=== PATIENT | male | born 1960 | race Caucasian/White ===

== ENCOUNTER → 2016-09-16 | Outpatient (CLI) | payer BC ==
--- NOTE | 2016-09-16 13:19 | US ---
EXAMINATION TYPE: US scrotum with doppler. Grayscale and color Doppler Duplex imaging performed of t he scrotum. DATE OF EXAM: 09/16/2016 12:54 PM COMPARISON: NONE CLINICAL HISTORY: N50.89 Testicular Mass. Right scrotal mass noted x 1 week. EXAM MEASUREMENTS: TESTICLES: Right Testicle: 4.5 x 3.2 x 2.3 cm Left Testicle: 5.0 x 2.7 x 2.4 cm EPIDIDYMIS HEAD: Right Epididymis: 3.4 x 3.7 x 1.9 cm Left Epididymis: 1.0 x 0.7 x 0.8 cm Doppler performed to assess for testicular vascularity; good bilateral color flow and waveforms are s een. There is no evidence of testicular torsion. Large right epididymal head cyst is noted and size = 3.6 x 3.7 x 2.1cm. Left epididymal head cyst = 0.7 x 0.6 x 0.3cm. Presence of hydroceles: no Presence of varicoceles: no Tech findings of large right epididymal head cyst was called to RITCHIE Smallwood, at Dr Chapman's Office at exam's end. No suspicious intratesticular masses seen. Comparison views are unremarkable. IMPRESSION: Large extratesticular or benign 3.7 cm epididymal head cyst corresponds to palpable abnor mality right scrotum.
== END | disposition home or self-care (01) ==
LOC: RADUSWWP 12:05
PROVIDERS: ATTEND Family Medicine
DX: N50.3 Cyst of epididymis (principal)
CPT/HCPCS: 76870; 93975

== ENCOUNTER 2020-06-01 10:07 | Day surgery (SDC) | payer BC ==
[2020-05-28 15:55] VITALS: BMI 30.5
--- NOTE | 2020-06-01 09:34 | P.GSHP ---
History of Present Illness H&P Date: 06/01/20 Chief Complaint: Right posterior back lipoma 60-year-old male here today for excision upper back lipoma. Patient has a 5 cm lipomatous mass right upper back. Increasing in size. Mild pain at times. Past Medical History Past Medical History: GERD/Reflux Additional Past Medical History / Comment(s): lipoma right back, History of Any Multi-Drug Resistant Organisms: None Reported Past Surgical History: Hernia Repair Additional Past Surgical History / Comment(s): colonoscopy, EGD Past Anesthesia/Blood Transfusion Reactions: No Reported Reaction Smoking Status: Former smoker Medications and Allergies Home Medications Medication Instructions Recorded Confirmed Type Pantoprazole [Protonix] 40 mg PO DAILY 05/28/20 05/28/20 History Allergies Allergy/AdvReac Type Severity Reaction Status Date / Time No Known Allergies Allergy Verified 05/28/20 15:52 Surgical - Exam Physical exam: General: Well-developed, well-nourished HEENT: Normocephalic, sclerae nonicteric Abdomen: Nontender, nondistended Extremities: No edema, 3 x 5 cm right upper back mass Neuro: Alert and oriented Assessment and Plan (1) Mass on back Narrative/Plan: We'll proceed with surgical excision right-sided back mass at this time. Risks of bleeding, infection, scarring, recurrence. He understands and wishes to proceed. Status: Acute Code(s): R22.2 - LOCALIZED SWELLING, MASS AND LUMP, TRUNK SNOMED Code(s): 931253138
[~2020-06-01 10:07] MED LIST: ACETAMINOPHEN TAB 500 MG TAB PO PRN; HEPARIN SODIUM,PORCINE 5,000 UNIT/ML 1 ML VIAL SQ PRN; Pre Op ABX Message 1 EACH MISC MISCELLANE ONE
[2020-06-01] MEDS ORDERED: ONDANSETRON 4 MG/2 ML VIAL ONE (10:25)
[2020-06-01] MEDS ORDERED: ONDANSETRON 4 MG/2 ML VIAL IVP ONE (10:41)
[2020-06-01] MEDS ORDERED: LACTATED RINGERS 1,000 ML IV ONE (10:41)
[2020-06-01] MEDS ORDERED: LIDOCAINE 1% (10MG/ML) FOR IV START INTRADERMA ONE (10:41)
[2020-06-01] MEDS ORDERED: DEXAMETHASONE SOD PHOSPHATE 4 MG/ML 1 ML VIAL IV ONE (10:42)
[2020-06-01] MEDS ORDERED: fentaNYL (PF) 50 MCG/ML 2 ML AMP ONE (11:35)
[2020-06-01] MEDS ORDERED: LIDOCAINE 1% INJ 10MG/ML (20 ML MDV) ONE (11:35)
[2020-06-01] MEDS ORDERED: MIDAZOLAM 2 MG/2 ML VIAL ONE (11:35)
[2020-06-01] MEDS ORDERED: PROPOFOL 10 MG/ML 20 ML VIAL IV ONE (11:35)
[2020-06-01] MEDS ORDERED: BUPIVACAINE (PF) 0.25% 30 ML VIAL SQ ONE ×2 (11:58)
[2020-06-01] MEDS ORDERED: NALOXONE 0.4 MG/ML 1 ML VIAL IV PRN (12:26)
[2020-06-01 12:31] VITALS: TEMP 97.9
[2020-06-01 12:39] VITALS: RESP 16
[2020-06-01 13:42] VITALS: BP 135/90; PULSE 62
--- NOTE | 2020-06-01 15:34 | P.OP ---
Date of Procedure: 06/01/20 Procedure(s) Performed: PREOPERATIVE DIAGNOSIS: Right back lipoma POSTOPERATIVE DIAGNOSIS: Right back lipoma PROCEDURE: Excision 4 cm right back lipoma with intermediate closure SURGEON: Annetta EBL: Shahid Jacobo ANESTHESIA: Gen. COMPLICATIONS: None OPERATIVE PROCEDURE: Patient placed in the left decubitus position. The patient's right posterior back lipomatous mass was prepped and draped sterilely. The skin was infiltrated with local anesthesia. A horizontal incision was made overlying the palpable mass. The subcutaneous lipomatous mass was fully excised. The lipoma itself was adherent to the surrounding adipose tissue. This required excision by electrocautery. This measured 4 x 3 x 1 cm. This was sent to pathology. No additional abnormalities were present. The subcutaneous tissues were then closed using interrupted 3-0 Vicryl sutures and the skin using a running 4-0 Monocryl stitch. Skin glue and sterile was applied. Length of intermediate closure 5 cm. DISPOSITION: Stable to recovery room
== END 2020-06-01 14:05 | disposition home or self-care (01) ==
LOC: OR 10:07
PROVIDERS: ATTEND Surgery
DX: D17.1 Benign lipomatous neoplasm of skin and subcutaneous tissue of trunk (principal); K21.9 Gastro-esophageal reflux disease without esophagitis; Z87.19 Personal history of other diseases of the digestive system; Z98.890 Other specified postprocedural states; Z87.891 Personal history of nicotine dependence; Z79.899 Other long term (current) drug therapy
CPT/HCPCS: 88304; 21931; J2250; J1644; J1100; J2405; J2001; J3010; J2704

== ENCOUNTER 2022-03-21 18:45 | Observation (INO) | payer BC ==
[2022-03-21 19:56] LABS: Glucose,Whole Blood 106 mg/dL (70-110)
[2022-03-21] MEDS ORDERED: SODIUM CHLORIDE 0.9% 1,000 ML IV STA (20:04)
[2022-03-21] MEDS ORDERED: ONDANSETRON 4 MG/2 ML VIAL IVP STA (20:05)
--- NOTE | 2022-03-21 20:13 | ED ---
General Adult HPI - General Source: patient Mode of arrival: ambulatory Limitations: no limitations <AkashMary Bethmacy Angulo - Last Filed: 03/21/22 20:51> <Ankit Goldstein - Last Filed: 03/21/22 21:38> - General Chief complaint: Abdominal Pain Stated complaint: Lower Abd pain Time Seen by Provider: 03/21/22 19:55 - History of Present Illness Initial comments: Dictation was produced using [employer] dictation software. please excuse any grammatical, word or spelling errors. Chief Complaint: 62-year-old male presents emergency Department 1 day history of abdominal pain History of Present Illness: Patient 62-year-old male presents emergency department for right lower quadrant abdominal pain. Patient states his symptoms began this morning. He woke up in his usual state of health. Patient states he felt fine yesterday. Patient with nausea, chills. Patient has a history of abdominal surgery. Denies any vomiting however has been dry heaving throughout the day. One the waiting room patient allegedly passed out and had convulsions of his head and neck area. Did urinate himself. is at the bedside states that she ran up to the nurses said that she thinks that her is having a seizure. Patient does not have any history of seizures. Did not notice any corticate posturing of his extremities. Did look like he was slumped over. He was diaphoretic at the time. Patient has any headache. There was no postictal state. The ROS documented in this emergency department record has been reviewed and confirmed by me. Those systems with pertinent positive or negative responses have been documented in the HPI. All other systems are other negative and/or noncontributory. PHYSICAL EXAM: General Impression: Alert and oriented x3, not in acute distress HEENT: Normocephalic atraumatic, extra-ocular movements intact, pupils equal and reactive to light bilaterally, mucous membranes moist. Cardiovascular: Heart regular rate and rhythm Chest: Able to complete full sentences, no retractions, no tachypnea Abdomen: abdomen soft, palpatory tenderness to the right lower quadrant, non- distended, no organomegaly Musculoskeletal: Pulses present and equal in all extremities, no peripheral edema Motor: no focal deficits noted Neurological: CN II-XII grossly intact, no focal motor or sensory deficits noted Skin: Intact with no visualized rashes Psych: Normal affect and mood ED course: 62-year-old male presents emergency department for chief complaint of right lower quadrant pain that began today. He did have an event while in the waiting room that sounded atypical for seizure. Vital signs as upon arrival are within acceptable limits. My EKG interpretation: Ventricular rate 66, sinus rhythm,. 162, care is 105, QTC 4:15. No DC prolongation, no QTC prolongation, no ST or T-wave changes noted. Overall, this EKG is unremarkable Patient is sent out to Dr. Padilla At 9:00 PM. (Christiano Bustos) - Related Data Home Medications Medication Instructions Recorded Confirmed Aspirin EC [Ecotrin Low Dose] 81 mg PO Q48H 03/21/22 03/21/22 Losartan/Hydrochlorothiazide 1 tab PO DAILY 03/21/22 03/21/22 [Hyzaar 100-25 Tablet] Omeprazole 20 mg PO BID 03/21/22 03/21/22 Allergies Allergy/AdvReac Type Severity Reaction Status Date / Time No Known Allergies Allergy Verified 03/21/22 21:01 Review of Systems ROS Other: All systems not noted in ROS Statement are negative. <Christiano Bustos - Last Filed: 03/21/22 20:51> ROS Other: All systems not noted in ROS Statement are negative. <Ankit Goldstein - Last Filed: 03/21/22 21:38> ROS Statement: Those systems with pertinent positive or pertinent negative responses have been documented in the HPI. Past Medical History Past Medical History: GERD/Reflux, Hypertension Additional Past Medical History / Comment(s): lipoma right back, History of Any Multi-Drug Resistant Organisms: None Reported Past Surgical History: Hernia Repair Additional Past Surgical History / Comment(s): colonoscopy, EGD Past Anesthesia/Blood Transfusion Reactions: No Reported Reaction Past Psychological History: No Psychological Hx Reported Smoking Status: Former smoker Past Alcohol Use History: None Reported Past Drug Use History: None Reported <Christiano Bustos - Last Filed: 03/21/22 20:51> General Exam Limitations: no limitations <Christiano Bustos - Last Filed: 03/21/22 20:51> General appearance: alert, in no apparent distress Head exam: Present: atraumatic, normocephalic, normal inspection Eye exam: Present: normal appearance, PERRL, EOMI. Absent: scleral icterus, conjunctival injection, periorbital swelling ENT exam: Present: normal exam, mucous membranes moist Neck exam: Present: normal inspection. Absent: tenderness, meningismus, lymphadenopathy Respiratory exam: Present: normal lung sounds bilaterally. Absent: respiratory distress, wheezes, rales, rhonchi, stridor Cardiovascular Exam: Present: regular rate, normal rhythm, normal heart sounds. Absent: systolic murmur, diastolic murmur, rubs, gallop, clicks GI/Abdominal exam: Present: soft, tenderness (Right lower quadrant), normal bowel sounds. Absent: distended, guarding, rebound, rigid Extremities exam: Present: normal inspection, full ROM, normal capillary refill. Absent: tenderness, pedal edema, joint swelling, calf tenderness Back exam: Present: normal inspection Neurological exam: Present: alert, oriented X3, CN II-XII intact Psychiatric exam: Present: normal affect, normal mood Skin exam: Present: warm, dry, intact, normal color. Absent: rash <Ankit Goldstein - Last Filed: 03/21/22 21:38> Course <Ankit Goldstein - Last Filed: 03/21/22 21:38> Vital Signs 03/21/22 03/21/22 18:50 20:02 Temperature 98.7 F Pulse Rate 83 80 Pulse Rate [ 80 Apical] Respiratory 20 14 Rate Blood Pressure 151/98 126/85 O2 Sat by Pulse 98 97 Oximetry - Reevaluation(s) Reevaluation #1: 03/21/22 21:36 Medical records reviewed (Ankit Goldstein) Reevaluation #2: 03/21/22 21:36 patient's pain is controlled (Ankit Goldstein) Reevaluation #3: 03/21/22 21:36 no recurrent seizure here in the ER (Ankit Goldstein) Reevaluation #4: 03/21/22 21:36 Issue informed results questions answered (Ankit Goldstein) - Consultations Consultation #1: With Dr. Chavez who agrees to admit (Ankit Goldstein) Medical Decision Making - Lab Data Result diagrams: 03/21/22 20:06 03/21/22 20:06 <Christiano Bustos - Last Filed: 03/21/22 20:51> - Lab Data Result diagrams: 03/21/22 20:06 03/21/22 20:06 - Radiology Data Radiology results: report reviewed (CT of the abdomen and pelvis positive for acute appendicitis), image reviewed <Ankit Goldstein - Last Filed: 03/21/22 21:38> - Medical Decision Making 62 male to the ED co RLQ pain, positive for appendicitis patient did have seizure here in the ER Procedure. Patient given pain control antibiotics will be admitted for surgical evaluation (Ankit Goldstein) - Lab Data Lab Results 03/21/22 03/21/22 03/21/22 Range/Units 19:55 20:06 20:06 WBC 20.3 H (3.8-10.6) k/uL RBC 5.05 (4.30-5.90) m/uL Hgb 16.3 (13.0-17.5) gm/dL Hct 45.5 (39.0-53.0) % MCV 90.0 (80.0-100.0) fL MCH 32.3 (25.0-35.0) pg MCHC 35.9 (31.0-37.0) g/dL RDW 11.9 (11.5-15.5) % Plt Count 253 (150-450) k/uL MPV 8.6 Neutrophils % 87 % Lymphocytes % 6 % Monocytes % 5 % Eosinophils % 1 % Basophils % 0 % Neutrophils # 17.7 H (1.3-7.7) k/uL Lymphocytes # 1.2 (1.0-4.8) k/uL Monocytes # 1.0 (0-1.0) k/uL Eosinophils # 0.2 (0-0.7) k/uL Basophils # 0.1 (0-0.2) k/uL Sodium 135 L (137-145) mmol/L Potassium 4.0 (3.5-5.1) mmol/L Chloride 96 L (98-107) mmol/L Carbon Dioxide 26 (22-30) mmol/L Anion Gap 13 mmol/L BUN 21 H (9-20) mg/dL Creatinine 1.04 (0.66-1.25) mg/dL Est GFR (CKD-EPI)AfAm 88 (>60 ml/min/1.73 sqM) Est GFR (CKD-EPI)NonAf 76 (>60 ml/min/1.73 sqM) Glucose 111 H (74-99) mg/dL POC Glucose (mg/dL) 106 (70-110) mg/dL POC Glu Operating Room Surgical Technician ID Alaina Nunez Plasma Lactic Acid Gt (0.7-2.0) mmol/L Calcium 9.4 (8.4-10.2) mg/dL Magnesium 2.1 (1.6-2.3) mg/dL Total Bilirubin 0.8 (0.2-1.3) mg/dL AST 32 (17-59) U/L ALT 27 (4-49) U/L Alkaline Phosphatase 73 (38-126) U/L Total Protein 7.5 (6.3-8.2) g/dL Albumin 4.8 (3.5-5.0) g/dL Lipase 109 (23-300) U/L 03/21/22 Range/Units 20:06 WBC (3.8-10.6) k/uL RBC (4.30-5.90) m/uL Hgb (13.0-17.5) gm/dL Hct (39.0-53.0) % MCV (80.0-100.0) fL MCH (25.0-35.0) pg MCHC (31.0-37.0) g/dL RDW (11.5-15.5) % Plt Count (150-450) k/uL MPV Neutrophils % % Lymphocytes % % Monocytes % % Eosinophils % % Basophils % % Neutrophils # (1.3-7.7) k/uL Lymphocytes # (1.0-4.8) k/uL Monocytes # (0-1.0) k/uL Eosinophils # (0-0.7) k/uL Basophils # (0-0.2) k/uL Sodium (137-145) mmol/L Potassium (3.5-5.1) mmol/L Chloride (98-107) mmol/L Carbon Dioxide (22-30) mmol/L Anion Gap mmol/L BUN (9-20) mg/dL Creatinine (0.66-1.25) mg/dL Est GFR (CKD-EPI)AfAm (>60 ml/min/1.73 sqM) Est GFR (CKD-EPI)NonAf (>60 ml/min/1.73 sqM) Glucose (74-99) mg/dL POC Glucose (mg/dL) (70-110) mg/dL POC Glu Operating Room Surgical Technician ID Plasma Lactic Acid Gt 1.4 (0.7-2.0) mmol/L Calcium (8.4-10.2) mg/dL Magnesium (1.6-2.3) mg/dL Total Bilirubin (0.2-1.3) mg/dL AST (17-59) U/L ALT (4-49) U/L Alkaline Phosphatase (38-126) U/L Total Protein (6.3-8.2) g/dL Albumin (3.5-5.0) g/dL Lipase (23-300) U/L Disposition <Christiano Bustos - Last Filed: 03/21/22 20:51> Is patient prescribed a controlled substance at d/c from ED?: No <Ankit Goldstein - Last Filed: 03/21/22 21:38> Clinical Impression: Abdominal pain, Acute appendicitis, New onset seizure Disposition: ADMITTED IP TO THIS [facility] Instructions (If sedation given, give patient instructions): Seizure/Epilepsy Discharge Instructions & Follow-Up Referrals: Bharathi Hong MD [Primary Care Provider] - 1-2 days
[2022-03-21 20:18] LABS: Basophils # (A) 0.1 k/uL (0-0.2); Basophils % (A) 0 %; Eosinophils # (A) 0.2 k/uL (0-0.7); Eosinophils % (A) 1 %; HCT 45.5 % (39.0-53.0); HGB 16.3 gm/dL (13.0-17.5); Lymphocytes # (A) 1.2 k/uL (1.0-4.8); Lymphocytes % (A) 6 %; MCH 32.3 pg (25.0-35.0); MCHC 35.9 g/dL (31.0-37.0); Mean Platelet Volume 8.6; Monocytes % (A) 5 %; Neutrophils # (A) 17.7 k/uL (1.3-7.7); Neutrophils % (A) 87 %; Platelet Count 253 k/uL (150-450); RBC 5.05 m/uL (4.30-5.90); RDW 11.9 % (11.5-15.5); WBC 20.3 k/uL (3.8-10.6)
[2022-03-21 20:29] LABS: Albumin 4.8 g/dL (3.5-5.0); Calcium 9.4 mg/dL (8.4-10.2); Magnesium 2.1 mg/dL (1.6-2.3); Total Bilirubin 0.8 mg/dL (0.2-1.3); Total Protein 7.5 g/dL (6.3-8.2)
--- NOTE | 2022-03-21 21:00 | CT ---
EXAMINATION TYPE: CT brain wo con CT DLP: 1141.4 mGycm, Automated exposure control for dose reduction was used. DATE OF EXAM: 03/21/2022 8:38 PM COMPARISON: None. CLINICAL INDICATION:Male, 62 years old with history of rlq abdominal pain, Syncope/seizure TECHNIQUE: Brain: Axial CT images of the brain were obtained with coronal and sagittal reformats created and rev iewed. Contrast used: None. Oral contrast used: None. FINDINGS: Brain: Extra-axial spaces: No abnormal extra-axial fluid collections. Ventricular system: Within normal limits Cerebral parenchyma: No acute intraparenchymal hemorrhage or mass effect. The frederick-white junction is well differentiated. Cerebellum: Unremarkable. Mass effect: No evidence of midline shift. Intracranial vasculature: unremarkable Soft tissues: Normal. Calvarium/osseous structures: No depressed skull fracture. Paranasal sinuses and mastoid air cells: Mild scattered paranasal sinus disease worse in the frontal, ethmoid air cells. Visualized orbits: Orbital contents are intact. IMPRESSION: 1. No acute intracranial process. 2. Paranasal sinus disease.
--- NOTE | 2022-03-21 21:04 | CT ---
EXAMINATION TYPE: CT abdomen pelvis w con CT DLP: 1890.6 mGycm, Automated exposure control for dose reduction was used. DATE OF EXAM: 03/21/2022 8:38 PM COMPARISON: none CLINICAL INDICATION:Male, 62 years old with history of rlq abdominal pain; RLQ pain TECHNIQUE: Axial CT of the abdomen and pelvis. Sagittal and coronal reformats were created on a [employer] workstation. Contrast used:100cc mL of Isovue 300 with IV Contrast, Oral contrast used: without Oral Contrast FINDINGS: LOWER CHEST: Unremarkable ABDOMEN LIVER: Unremarkable GALLBLADDER AND BILE DUCTS: Unremarkable. PANCREAS: Unremarkable. SPLEEN: Unremarkable. ADRENAL GLANDS: Unremarkable. KIDNEYS AND URETERS: No evidence of hydronephrosis or renal calculus. Right renal cyst. PELVIS BLADDER: Unremarkable REPRODUCTIVE: Unremarkable. ABDOMEN & PELVIS STOMACH AND BOWEL: a the appendix is dilated with mild hazy fat stranding changes. The appendix measu res up to 13 mm and is fluid-filled. No evidence of bowel obstruction. Moderate hiatal hernia. Scatte red clonic diverticula are present. PERITONEUM: No evidence of pneumoperitoneum or free fluid. VASCULATURE: No evidence of aortic aneurysm. MUSCULOSKELETAL: No acute osseous abnormalities LYMPH NODES: No gross evidence for lymphadenopathy. SOFT TISSUE/ABDOMINAL WALL: Unremarkable IMPRESSION: 1. Acute uncomplicated appendicitis. No evidence of organizing fluid collection or free air. 2. Clonic diverticulosis.
[2022-03-21] MEDS ORDERED: PIPERACILLIN-TAZOBACTAM 3.375 GM in SODIUM CHLORIDE 0.9% 100 ML IVPB ONE (21:30)
[2022-03-21] MEDS ORDERED: MORPHINE SULFATE 4 MG/ML SYRINGE IV PRN (21:34)
[2022-03-21] MEDS ORDERED: NALOXONE 0.4 MG/ML 1 ML VIAL IV PRN (21:34)
[2022-03-21] MEDS ORDERED: ONDANSETRON 4 MG/2 ML VIAL IVP PRN (21:34)
--- NOTE | 2022-03-21 21:42 | XR ---
EXAMINATION TYPE: XR chest 2V DATE OF EXAM: 03/21/2022 9:06 PM COMPARISON: None TECHNIQUE: XR chest 2V Frontal and lateral views of the chest CLINICAL INDICATION:Male, 62 years old with history of syncope; FINDINGS: Lungs/Pleura: There is no evidence of pleural effusion, focal consolidation, or pneumothorax. Pulmonary vascularity: Unremarkable. Heart/mediastinum: Cardiomediastinal silhouette is unremarkable. Musculoskeletal: No acute osseous pathology. IMPRESSION: No acute cardiopulmonary disease/process.
[2022-03-21] MEDS ORDERED: PANTOPRAZOLE 40 MG/10 ML VIAL IV SCH (21:45)
[2022-03-21] MEDS: SODIUM CHLORIDE 0.9% 1,000 ML IV SCH (21:57)
--- NOTE | 2022-03-21 22:48 | P.GSHP ---
History of Present Illness H&P Date: 03/21/22 62-year-old male presents to the emergency department with complaints of abdominal pain that started at 8:30 this morning. He states that he did go to work and the pain progressed throughout the day and became worse. He states that he was having nausea and did have 1 vomiting episode. He states that his intake has been less than usual for the past day. On arrival to the emergency department, while in the waiting room, patient did have significant amount of pain and felt lightheaded and states that he passed out. This was witnessed by his . He was taken for evaluation into the emergency department and did have a CT of the head which showed no intracranial abnormality. CT of the abd omen and pelvis was performed that was concerning for acute appendicitis. Patient does not have a history of seizures or neurologic deficits. On exam, patient states that he is currently having abdominal pain but does not feel any weakness or deficits throughout his body. There is no evidence of postictal state. He denies any fevers. - Review of Systems All systems: negative Past Medical History Past Medical History: GERD/Reflux, Hypertension Additional Past Medical History / Comment(s): lipoma right back, History of Any Multi-Drug Resistant Organisms: None Reported Past Surgical History: Hernia Repair Additional Past Surgical History / Comment(s): colonoscopy, EGD Past Anesthesia/Blood Transfusion Reactions: No Reported Reaction Past Psychological History: No Psychological Hx Reported Smoking Status: Former smoker Past Alcohol Use History: None Reported Past Drug Use History: None Reported Medications and Allergies Home Medications Medication Instructions Recorded Confirmed Type Aspirin EC [Ecotrin Low Dose] 81 mg PO Q48H 03/21/22 03/21/22 History Losartan/Hydrochlorothiazide 1 tab PO DAILY 03/21/22 03/21/22 History [Hyzaar 100-25 Tablet] Omeprazole 20 mg PO BID 03/21/22 03/21/22 History Allergies Allergy/AdvReac Type Severity Reaction Status Date / Time No Known Allergies Allergy Verified 03/21/22 21:01 Surgical - Exam Osteopathic Statement: *. No significant issues noted on an osteopathic structural exam other than those noted in the History and Physical/Consult. Vital Signs Temp Pulse Resp BP Pulse Ox 98.7 F 83 20 151/98 98 03/21/22 18:50 03/21/22 18:50 03/21/22 18:50 03/21/22 18:50 03/21/22 18:50 - General well nourished, no distress - Eyes normal ocular movement - ENT no hearing loss - Neck trachea midline - Respiratory normal respiratory effort - Abdomen Soft, tender to palpation in the right lower quadrant, nondistended, no rebound, no guarding - Psychiatric oriented to time, oriented to person, oriented to place Results - Labs 03/21/22 20:06 03/21/22 20:06 Abnormal Lab Results - Last 24 Hours (Table) 03/21/22 03/21/22 Range/Units 20:06 20:06 WBC 20.3 H (3.8-10.6) k/uL Neutrophils # 17.7 H (1.3-7.7) k/uL Sodium 135 L (137-145) mmol/L Chloride 96 L (98-107) mmol/L BUN 21 H (9-20) mg/dL Glucose 111 H (74-99) mg/dL Diabetes panel 03/21/22 Range/Units 20:06 Sodium 135 L (137-145) mmol/L Potassium 4.0 (3.5-5.1) mmol/L Chloride 96 L (98-107) mmol/L Carbon Dioxide 26 (22-30) mmol/L BUN 21 H (9-20) mg/dL Creatinine 1.04 (0.66-1.25) mg/dL Glucose 111 H (74-99) mg/dL Calcium 9.4 (8.4-10.2) mg/dL AST 32 (17-59) U/L ALT 27 (4-49) U/L Alkaline Phosphatase 73 (38-126) U/L Total Protein 7.5 (6.3-8.2) g/dL Albumin 4.8 (3.5-5.0) g/dL Calcium panel 03/21/22 Range/Units 20:06 Calcium 9.4 (8.4-10.2) mg/dL Albumin 4.8 (3.5-5.0) g/dL Pituitary panel 03/21/22 Range/Units 20:06 Sodium 135 L (137-145) mmol/L Potassium 4.0 (3.5-5.1) mmol/L Chloride 96 L (98-107) mmol/L Carbon Dioxide 26 (22-30) mmol/L BUN 21 H (9-20) mg/dL Creatinine 1.04 (0.66-1.25) mg/dL Glucose 111 H (74-99) mg/dL Calcium 9.4 (8.4-10.2) mg/dL Adrenal panel 03/21/22 Range/Units 20:06 Sodium 135 L (137-145) mmol/L Potassium 4.0 (3.5-5.1) mmol/L Chloride 96 L (98-107) mmol/L Carbon Dioxide 26 (22-30) mmol/L BUN 21 H (9-20) mg/dL Creatinine 1.04 (0.66-1.25) mg/dL Glucose 111 H (74-99) mg/dL Calcium 9.4 (8.4-10.2) mg/dL Total Bilirubin 0.8 (0.2-1.3) mg/dL AST 32 (17-59) U/L ALT 27 (4-49) U/L Alkaline Phosphatase 73 (38-126) U/L Total Protein 7.5 (6.3-8.2) g/dL Albumin 4.8 (3.5-5.0) g/dL Assessment and Plan Plan: 62-year-old male with acute appendicitis. He was started on IV antibiotics in the emergency department and did receive IV fluids. Plan is for surgical intervention with laparoscopic appendectomy. He has been nothing by mouth. Further recommendations to be made after procedure is completed.
[2022-03-21] MEDS ORDERED: GLYCOPYRROLATE 0.2 MG/ML 2 ML VIAL ONE (23:00)
[2022-03-21] MEDS ORDERED: fentaNYL (PF) 50 MCG/ML 2 ML AMP ONE (23:00)
[2022-03-21] MEDS ORDERED: HEPARIN SODIUM,PORCINE 5,000 UNIT/ML 1 ML VIAL ONE (23:00)
[2022-03-21] MEDS ORDERED: ROCURONIUM 10 MG/ML (5 ML VIAL) IV ONE (23:00)
[2022-03-21] MEDS ORDERED: DEXAMETHASONE SOD PHOSPHATE 4 MG/ML 1 ML VIAL ONE (23:00)
[2022-03-21] MEDS ORDERED: MIDAZOLAM 2 MG/2 ML VIAL ONE (23:00)
[2022-03-21] MEDS ORDERED: PROPOFOL 10 MG/ML 20 ML VIAL IV ONE (23:00)
[2022-03-21] MEDS ORDERED: KETOROLAC 15 MG/ML 1 ML VIAL ONE (23:00)
[2022-03-21] MEDS ORDERED: SUCCINYLCHOLINE CHLORIDE 200 MG/10 ML VIAL IV ONE (23:00)
[2022-03-21] MEDS ORDERED: ONDANSETRON 4 MG/2 ML VIAL ONE (23:00)
[2022-03-21] MEDS ORDERED: NEOSTIGMINE 1 MG/ML 10 ML VIAL ONE (23:00)
[2022-03-21] MEDS ORDERED: HYDROcodone/APAP 5-325MG 1 EACH TAB PO PRN (23:42)
--- NOTE | 2022-03-21 23:42 | P.OP ---
Date of Procedure: 03/21/22 Preoperative Diagnosis: Acute appendicitis Postoperative Diagnosis: Acute appendicitis Procedure(s) Performed: Laparoscopic appendectomy Anesthesia: [facility] Surgeon: Willem Chavez Pathology: other (Appendix) Condition: stable Disposition: floor Indications for Procedure: 62-year-old male presented to the emergency department with complaints of abdominal pain. On workup, he was found to have acute appendicitis. He was taken to the OR for laparoscopic appendectomy. Risks, benefits and alternatives were provided. Operative Findings: Dilated and inflamed appendix Description of Procedure: The patient is brought to the and operating suite and placed in supine position on the operating table. Sedation was provided by anesthesia and the patient underwent endotracheal intubation. He was then prepped and draped in regular sterile fashion. A super umbilical incision was made and dissection was carried to the fascia. The fascia was incised and a 12 mm trocar was placed. Pneumoperitoneum was achieved. 2 additional 5 mm ports were placed. One was placed in the suprapubic region and the other in the left lower quadrant. The patient was then positioned appropriately. The cecum was identified and the tenia were followed to the appendix. The appendix was noted to be dilated and inflamed. It was grasped and elevated. A window was created between the appendix and the mesoappendix. The mesoappendix was then dissected free using LigaSure device. Hemostasis was maintained. The base of the appendix was clearly visualized. A stapler device was fired across the base. Hemostasis continued to be maintained. The appendix was placed in an Endo Catch bag and removed from the abdomen. Small amount of irrigation and suction was performed in the right lower quadrant. The supraumbilical incision site was then closed using interrupted 0 Vicryl suture under direct visualization and Krishna-Avelino device. Pneumoperitoneum was released. All skin incisions were closed with 4-0 Vicryl subcuticular suture. Sterile dressing was applied. The patient was awakened in the operating suite and taken to postanesthesia care unit in stable condition.
[2022-03-22] MEDS: KETOROLAC 15 MG/ML 1 ML VIAL IVP SCH ×3 (00:54→13:10)
[2022-03-22] MEDS: HEPARIN SODIUM,PORCINE/PF 5,000 UNIT/0.5 ML SYRINGE SQ SCH ×3 (00:56→16:26)
[2022-03-22] MEDS ORDERED: PIPERACILLIN-TAZOBACTAM 3.375 GM in SODIUM CHLORIDE 0.9% 100 ML IVPB SCH (05:00)
[2022-03-22] MEDS ORDERED: PANTOPRAZOLE 40 MG TABLET PO SCH (07:30)
[2022-03-22] MEDS ORDERED: hydroCHLOROthiazide 25 MG TAB PO SCH ×2 (09:00→10:00)
[2022-03-22] MEDS ORDERED: LOSARTAN 50 MG TAB PO SCH (09:00)
[2022-03-22] MEDS: AMPICILLIN-SULBACTAM 3 GM in SODIUM CHLORIDE 0.9% 100 ML IVPB SCH ×2 (09:50→13:11)
[2022-03-22] MEDS: SODIUM CHLORIDE 0.9% 1,000 ML IV SCH ×2 (09:50→16:28)
[2022-03-22 13:57] VITALS: BP 125/75; PULSE 86; RESP 18; TEMP 98
--- NOTE | 2022-03-22 15:28 | P.DS ---
Providers Date of admission: 03/21/22 21:34 Attending physician: Willem Chavez DO Primary care physician: Bharathi Angulo [facility] Course: 62-year-old male presented to the emergency department with complaints of abdominal pain. He did have a syncope episode in the waiting area that did spontaneously resolve and patient has not had any postictal state or any neurologic deficits since that time. He was found to have appendicitis and was taken for laparoscopic appendectomy. Postoperatively, his pain significantly improved. He was tolerating clear liquid diet. He was requesting discharge. We were unable to obtain post-operative labs in a timely fashion due to computer down time in the hospital with labs sent out on weekends. He has not had any post-operative febrile episodes and has shown hemodynamic stability. There was no rupture or significant purulent changes during the procedure. He is surgically stable for discharge and will be sent home with oral antibiotics. Assessment: Abdomen: Soft, nontender, incision sites are clean/dry/intact Procedures: Laparoscopic appendectomy Patient Condition at Discharge: Good Plan - Discharge Summary New Discharge Prescriptions: New Amoxic-Pot Clav 500-125 mg [Augmentin 500-125 mg] 1 tab PO Q12HR #10 tab HYDROcodone/APAP 5-325MG [Hollister 5-325] 1 each PO Q6HR PRN #12 tab PRN Reason: Pain Continue Losartan/Hydrochlorothiazide [Hyzaar 100-25 Tablet] 1 tab PO DAILY Aspirin EC [Ecotrin Low Dose] 81 mg PO Q48H Omeprazole 20 mg PO BID Discharge Medication List Aspirin EC [Ecotrin Low Dose] 81 mg PO Q48H 03/21/22 [History] Losartan/Hydrochlorothiazide [Hyzaar 100-25 Tablet] 1 tab PO DAILY 03/21/22 [History] Omeprazole 20 mg PO BID 03/21/22 [History] Amoxic-Pot Clav 500-125 mg [Augmentin 500-125 mg] 1 tab PO Q12HR #10 tab 03/22/22 [Rx] HYDROcodone/APAP 5-325MG [Hollister 5-325] 1 each PO Q6HR PRN #12 tab 03/22/22 [Rx] Follow up Appointment(s)/Referral(s): Bharathi Hong MD [Primary Care Provider] - 1-2 days Willem Chavez DO [Doctor of Osteopathic Medicine] - 2 Weeks Patient Instructions/Handouts: Laparoscopic Appendectomy (DC) Activity/Diet/Wound Care/Special Instructions: No lifting greater than 5 pounds for 1 week Stay on soft foods Take stool softener with pain medication Okay to shower, do not scrub on incisions Discharge Disposition: HOME SELF-CARE
== END 2022-03-22 17:18 | disposition home or self-care (01) ==
LOC: EC 18:45 → 6NMEDSUR 21:34
PROVIDERS: ADMIT Surgery; ATTEND Surgery
DX: K35.890 Other acute appendicitis without perforation or gangrene (principal); R56.9 Unspecified convulsions; K21.9 Gastro-esophageal reflux disease without esophagitis; I10 Essential (primary) hypertension; D17.1 Benign lipomatous neoplasm of skin and subcutaneous tissue of trunk; N28.1 Cyst of kidney, acquired; K57.30 Diverticulosis of large intestine without perforation or abscess without bleeding; K44.9 Diaphragmatic hernia without obstruction or gangrene; Z79.82 Long term (current) use of aspirin; Z79.899 Other long term (current) drug therapy; Z87.891 Personal history of nicotine dependence
CPT/HCPCS: 96365; 96366; 96375 ×3; 96372; 99285; 36415; 93005; 80053; 83605; 83690; 83735; 85025; 71046; 70450; 74177; 44970; G0378 ×2; J2543; J2250; J0330; J1644 ×2; J1100; J2710; J2405; J3010; J0295; J1885 ×2; J2704; C9113; Q9967; 88304